=== PATIENT | female | born 2000 | race Caucasian/White ===

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

== ENCOUNTER 2020-01-11 21:17 | Emergency (ER) | payer SELFPAY ==
[2020-01-11 22:33] VITALS: BP 125/68
[2020-01-12 00:13] LABS: BUN/Creatinine Ratio 15; Blood Urea Nitrogen 12 mg/dL (7-17); Calcium 9.6 mg/dL (8.4-10.2); Hemolysis Index 5
[2020-01-12 00:37] LABS: Basophils # (Auto) 0.1 K/mm3 (0.0-0.1); Basophils % (Auto) 0.7 % (0.0-1.8); Eosinophils # (Auto) 0.1 K/mm3 (0.0-0.4); Eosinophils % (Auto) 0.9 % (0.0-4.3); Hematocrit 39.5 % (30.3-42.9); Hemoglobin 13.2 gm/dl (10.1-14.3); Lymphocytes # (Auto) 2.9 K/mm3 (1.2-5.4); Lymphocytes % (Auto) 32.7 % (13.4-35.0); Mean Corpuscular HGB Conc 33 % (30-34); Mean Corpuscular Volume 93 fl (79-97); Monocytes # (Auto) 0.6 K/mm3 (0.0-0.8); Monocytes % (Auto) 7.2 % (0.0-7.3); Platelet Count 236 K/mm3 (140-440); Red Blood Count 4.26 M/mm3 (3.65-5.03)
[2020-01-12] MEDS ORDERED: HYDROcodone/ACETAMINOPHEN 5-325 MG TAB PO ONE (01:04)
[2020-01-12] MEDS ORDERED: CLINDAMYCIN 150 MG/ML VIAL 6 ML IM ONE (01:04)
[2020-01-12] MEDS ORDERED: DIPHtheria,PERTUSSIS(ACELL),TETANUS VACCINE/PF 0.5 ML VIAL IM ONE (01:04)
--- NOTE | 2020-01-12 01:22 | Emergency Department Report ---
- General Chief complaint: Extremity Problem,Nontraumatic Stated complaint: BIT TO LEFT ARM/SWOLLEN/PAINFUL Time Seen by Provider: 01/12/20 00:48 Source: patient, jewel bearing facer Mode of arrival: Ambulatory Limitations: Language Barrier - History of Present Illness Initial comments: Language line used for Pakistani interpretation, jewel bearing facer [id number] Patient is a 19-year-old female presents emergency room with complaints of a possible spider bite to the left forearm that occurred 5 days ago. She did not see what bit her and did not feel anything bite her. She states that 3 days ago she began experiencing pain, increased swelling, increased redness, increased warmth, drainage from the site. She states that she has had associated nausea and a couple episodes of vomiting. She denies any fever. She does not report any numbness or weakness but states that she does has pain. She denies any past medical history. No allergies to medications. She is unsure of her last tetanus immunization. - Related Data Previous Rx's Medication Instructions Recorded Last Taken Type Naproxen 500 mg PO BID PRN #12 tablet 01/12/20 Unknown Rx Sulfamethoxazole/Trimethoprim 1 each PO BID 10 Days #20 tablet 01/12/20 Unknown Rx [Bactrim DS TAB] Allergies Allergy/AdvReac Type Severity Reaction Status Date / Time No Known Allergies Allergy Verified 09/18/16 21:09 Abscess Boil HPI - HPI Chief Complaint: Extremity Problem,Nontraumatic Stated Complaint: BIT TO LEFT ARM/SWOLLEN/PAINFUL Time Seen by Provider: 01/12/20 00:48 Home Medications: Previous Rx's Medication Instructions Recorded Last Taken Type Naproxen 500 mg PO BID PRN #12 tablet 01/12/20 Unknown Rx Sulfamethoxazole/Trimethoprim 1 each PO BID 10 Days #20 tablet 01/12/20 Unknown Rx [Bactrim DS TAB] Allergies/Adverse Reactions: Allergies Allergy/AdvReac Type Severity Reaction Status Date / Time No Known Allergies Allergy Verified 09/18/16 21:09 ED Review of Systems ROS: Stated complaint: BIT TO LEFT ARM/SWOLLEN/PAINFUL Other details as noted in HPI Comment: All other systems reviewed and negative ED Past Medical Hx - Past Medical History Previous Medical History?: No - Surgical History Past Surgical History?: No - Social History Smoking Status: Never Smoker Substance Use Type: Alcohol - Medications Home Medications: Home Medications Medication Instructions Recorded Confirmed Last Taken Type Naproxen 500 mg PO BID PRN #12 tablet 01/12/20 Unknown Rx Sulfamethoxazole/Trimethoprim 1 each PO BID 10 Days #20 tablet 01/12/20 Unknown Rx [Bactrim DS TAB] ED Physical Exam - General Limitations: No Limitations General appearance: alert, in no apparent distress - Head Head exam: Present: atraumatic, normocephalic - Eye Eye exam: Present: normal appearance - ENT ENT exam: Present: mucous membranes moist - Extremities Exam Extremities exam: Present: other (2 cm area of induration with 6 cm area of surrounding erythema present to the left forearm, no drainage, no fluctuance, no necrosis, no skin denuding, no blistering, neurovascularly intact) - Neurological Exam Neurological exam: Present: alert, oriented X3 - Psychiatric Psychiatric exam: Present: normal affect, normal mood - Skin Skin exam: Present: warm, dry ED Course Vital Signs 01/11/20 22:32 Temperature 98.5 F Pulse Rate 92 H Respiratory 16 Rate Blood Pressure 125/68 O2 Sat by Pulse 100 Oximetry ED Medical Decision Making - Lab Data Result diagrams: 01/11/20 23:25 01/11/20 23:25 - Medical Decision Making Language line used for Pakistani interpretation, jewel bearing facer [id number] Patient is a 19-year-old female presents emergency room with complaints of a possible spider bite to the left forearm that occurred 5 days ago. She did not see what bit her and did not feel anything bite her. She states that 3 days ago she began experiencing pain, increased swelling, increased redness, increased warmth, drainage from the site. She states that she has had associated nausea and a couple episodes of vomiting. She denies any fever. She does not report any numbness or weakness but states that she does has pain. She denies any past medical history. No allergies to medications. She is unsure of her last tetanus immunization. vitals are normal. on exam: 2 cm area of induration with 6 cm area of surrounding erythema present to the left forearm, no drainage, no fluctuance, no necrosis, no skin denuding, no blistering, neurovascularly in tact. Examination does appear consistent with a possible small bite with surrounding cellulitis, there is no drainable abscess at this time. Patient given clindamycin IM, Tdap, pain medication as she did not drive to the emergency department. Used skin marker to aixa the area of cellulitis. Patient given prescription for Bactrim and naproxen. Advised patient Please take medication as prescribed. Please take antibiotics with food. Increase your water intake over the next several days. Please follow-up with a primary care doctor in the next 3 days for reexamination of the area. Return to the emergency room immediately for any new or worsening symptoms or if redness begins to cross the skin marker I red on your arm. Critical care attestation.: If time is entered above; I have spent that time in minutes in the direct care of this critically ill patient, excluding procedure time. ED Disposition Clinical Impression: Spider bite Qualifiers: Encounter type: initial encounter Injury intent: accidental or unintentional Qualified Code(s): T63.301A - Toxic effect of unspecified spider venom, accidental (unintentional), initial encounter Cellulitis Qualifiers: Site of cellulitis: extremity Site of cellulitis of extremity: upper extremity Laterality: left Qualified Code(s): L03.114 - Cellulitis of left upper limb Disposition: - TO HOME OR SELFCARE Is pt being admited?: No Does the pt Need Aspirin: No Condition: Stable Instructions: Cellulitis (ED) Additional Instructions: Please take medication as prescribed. Please take antibiotics with food. Incr ease your water intake over the next several days. Please follow-up with a primary care doctor in the next 3 days for reexamination of the area. Return to the emergency room immediately for any new or worsening symptoms or if redness begins to cross the skin marker I red on your arm. [place] los medicamentos segn lo prescrito. [place] antibiticos con comida. Aumente pathak ingesta de agua ousmane los prximos quiroga. Anna un seguimiento con un mdico de atencin primaria en los prximos 3 quiroga para volver a examinar el kalli. Regrese a la sree de emergencias de inmediato por cualquier sntoma nuevo o que empeore o si el enrojecimiento comienza a cruzar el marcador de piel que dibuj en pathak brazo. Prescriptions: Sulfamethoxazole/Trimethoprim [Bactrim DS TAB] 1 each PO BID 10 Days #20 tablet Naproxen 500 mg PO BID PRN #12 tablet PRN Reason: pain Referrals: [facility] [Provider Group] - 2-3 Days [facility] [Outside] - 2-3 Days JOAQUÍN HARGROVE MD [Staff Physician] - 2-3 Days Time of Disposition: :27 Print Language: PALESTINIAN
== END 2020-01-12 02:15 | disposition home or self-care (01) ==
LOC: ED 21:17
DX: L03.114 Cellulitis of left upper limb (principal); Z79.899 Other long term (current) drug therapy; W57.XXXA Bitten or stung by nonvenomous insect and other nonvenomous arthropods, initial encounter; Y93.89 Activity, other specified; Y92.89 Other specified places as the place of occurrence of the external cause; Y99.8 Other external cause status
CPT/HCPCS: 36415; 80048; 85025; 90471; 90715; 96372; 99283